=== PATIENT | female | born 1940 | race Caucasian/White ===

== ENCOUNTER 2022-10-02 18:23 | Emergency (ER) | payer MEDICARE ==
[~2022-10-02] VITALS: Ht 152.4 cm; Wt 48.1 kg
[2022-10-02 18:58] VITALS: BP_SYST 97
[2022-10-02] MEDS ORDERED: ACET-2634 PO (22:11)
[2022-10-02] MEDS ORDERED: OXYC-128 PO (22:11)
[2022-10-02] MEDS ORDERED: NAPR-1172 PO (22:11)
[2022-10-02] MEDS ORDERED: KETOROLAC TROMETHAMINE 30 MG VIAL IM ONE (22:15)
[2022-10-02] MEDS ORDERED: ACETAMINOPHEN 500 MG TABLET PO ONE (22:15)
[2022-10-02 22:41] VITALS: BP_SYST 106
== END 2022-10-02 22:41 | disposition home or self-care (01) ==
LOC: SED 18:23
DX: S82.425A Nondisplaced transverse fracture of shaft of left fibula, initial encounter for closed fracture (principal); Z79.899 Other long term (current) drug therapy; W01.0XXA Fall on same level from slipping, tripping and stumbling without subsequent striking against object, initial encounter; Y93.89 Activity, other specified; Y92.89 Other specified places as the place of occurrence of the external cause; Y99.8 Other external cause status
CPT/HCPCS: 99284; 29515; 73610; 73630; 96372; J1885